=== PATIENT | male | born 1950 | race Caucasian/White ===

== ENCOUNTER → 2020-11-08 | Day surgery (SDC) | payer MEDICARE, OTHER ==
[~2020-11-08] MED LIST: DAILY VALUE1 EACH PO; FISH OIL 1,0001 EACH PO; MOBIC15 MG PO; VITAMIN E100 UNI1 PO; ZOCOR20 MG PO
== END | disposition home or self-care (01) ==
LOC: FAS 09:55
DX: Z12.11 Encounter for screening for malignant neoplasm of colon (principal); K57.30 Diverticulosis of large intestine without perforation or abscess without bleeding; K21.9 Gastro-esophageal reflux disease without esophagitis; Z86.010 Personal history of colon polyps; Z96.698 Presence of other orthopedic joint implants; Z96.612 Presence of left artificial shoulder joint; Z96.611 Presence of right artificial shoulder joint
CPT/HCPCS: J7120

== ENCOUNTER 2021-06-06 16:51 | Emergency (ER) | payer MEDICARE, OTHER | END 2021-06-06 20:35 | disposition home or self-care (01) | LOC: FER 16:51 | DX: U07.1 COVID-19 (principal) | CPT/HCPCS: M0243; Q0244 ==

== ENCOUNTER → 2021-08-30 | Day surgery (SDC) | payer MEDICARE, OTHER ==
[~2021-08-30] VITALS: Ht 167.6 cm; Wt 68.9 kg
[~2021-08-30] MED LIST changes: +NORCO 5-325 TA1 EACH PO
== END | disposition home or self-care (01) ==
LOC: FAS 07:03
DX: L72.0 Epidermal cyst (principal); L72.3 Sebaceous cyst; Z79.899 Other long term (current) drug therapy; Z86.010 Personal history of colon polyps
CPT/HCPCS: J2250; J2405; J2704; J3010; J7120